=== PATIENT | female | born 1990 | race Caucasian/White ===

== ENCOUNTER 2018-03-21 17:47 | Emergency (ER) | payer OTHER ==
[~2018-03-21] VITALS: Ht 165.1 cm; Wt 72.9 kg
[2018-03-21 17:47] VITALS: BP 119/76
[2018-03-21 18:47] LABS: ALANINE AMINOTRANSFERASE 29 U/L (12-78); ANION GAP 8 mmol/L (5-15); BASOPHILS # (AUTO) 0.03 x10^3/uL (0-0.1); BASOPHILS % (AUTO) 0 % (0-1); CALCIUM 9.2 mg/dL (8.5-10.1); CHLORIDE 106 mmol/L (98-107); EOSINOPHILS % (AUTO) 1 % (1-7); LYMPHOCYTES % (AUTO) 19 % (22-44); MD NO; MEAN CORPUSCULAR HEMOGLOBIN 30.5 pg (27.0-34.8); MEAN CORPUSCULAR HGB CONC 33.9 g/dL (32.4-35.8); MEAN CORPUSCULAR VOLUME 90.2 fL (80-100); MEAN PLATELET VOLUME 9.8 fL (7.4-10.4); MONOCYTES # (AUTO) 0.66 x10^3/uL (0.2-0.8); MONOCYTES % (AUTO) 6 % (2-9); NEUTROPHILS # (AUTO) 8.09 x10^3/uL (1.8-6.8); NEUTROPHILS % (AUTO) 74 % (42-75); PLATELET COUNT 285 x10^3/uL (130-400); RED BLOOD COUNT 5.06 x10^6/uL (3.82-5.3); RED CELL DISTRIBUTION WIDTH 13.3 % (9.6-15.2)
[2018-03-21 18:59] LABS: MICROSCOPIC NOT IND
[2018-03-21 19:04] LABS: CULTURE INDICATED? NO
[2018-03-21 19:09] LABS: ALKALINE PHOSPHATASE 59 U/L (45-117); BILIRUBIN,TOTAL 0.8 mg/dL (0.2-1.0)
[2018-03-21] MEDS ORDERED: PREN1TAB60 PO (20:23)
[2018-03-21] MEDS ORDERED: CALC200T3 PO (20:23)
== END 2018-03-21 20:51 | disposition home or self-care (01) ==
LOC: ED 20:35
DX: O26.891 Other specified pregnancy related conditions, first trimester (principal); R10.2 Pelvic and perineal pain; Z3A.01 Less than 8 weeks gestation of pregnancy; Z88.0 Allergy status to penicillin
CPT/HCPCS: 36415; 76801; 80053; 81003; 84702; 85025; 99285

== ENCOUNTER 2018-11-11 15:30 | Inpatient (IN) | payer OTHER ==
[~2018-11-11] VITALS: Ht 165.1 cm; Wt 84.1 kg
[~2018-11-11 15:30] MED LIST: CALC200T3 PO; PREN1TAB60 PO
[2018-11-17] MEDS: LACTATED RINGERS 1,000 ML IV SCH (03:30)
[2018-11-17] MEDS ORDERED: OXYTOCIN 30U/ 0.9% NaCL 500ML 500 ML IV ONE (20:48)
[2018-11-17] MEDS ORDERED: D5%-LACTATED RINGERS 1,000 ML IV SCH (20:48)
[2018-11-17] MEDS ORDERED: ONDANSETRON 2MG/ML, 2ML IVPush PRN (21:00)
[2018-11-17] MEDS ORDERED: FENTANYL PF 100 MCG/2ML IV PRN (21:00)
[2018-11-17] MEDS ORDERED: CALCIUM CARBONATE 500 MG TAB.CHEW PO PRN (21:00)
[2018-11-17 21:16] VITALS: BP 126/80
[2018-11-17] MEDS ORDERED: MISOPROSTOL 25 MCG TABLET ONE (21:31)
[2018-11-17] MEDS: MISOPROSTOL 25 MCG TABLET VG PRN (21:35)
[2018-11-17 21:50] LABS: BASOPHILS # (AUTO) 0.03 x10^3/uL (0-0.1); BASOPHILS % (AUTO) 0 % (0-1); EOSINOPHILS % (AUTO) 1 % (1-7); LYMPHOCYTES # (AUTO) 1.86 x10^3/uL (1-3.4); LYMPHOCYTES % (AUTO) 17 % (22-44); MD NO; MEAN CORPUSCULAR HEMOGLOBIN 30.8 pg (27.0-34.8); MEAN CORPUSCULAR HGB CONC 34.1 g/dL (32.4-35.8); MEAN CORPUSCULAR VOLUME 90.3 fL (80-100); MEAN PLATELET VOLUME 8.9 fL (7.4-10.4); MONOCYTES # (AUTO) 0.66 x10^3/uL (0.2-0.8); MONOCYTES % (AUTO) 6 % (2-9); NEUTROPHILS # (AUTO) 8.25 x10^3/uL (1.8-6.8); NEUTROPHILS % (AUTO) 76 % (42-75); PLATELET COUNT 226 x10^3/uL (130-400); RED BLOOD COUNT 4.18 x10^6/uL (3.82-5.3); RED CELL DISTRIBUTION WIDTH 13.3 % (9.6-15.2)
[2018-11-18] MEDS: MISOPROSTOL 25 MCG TABLET VG PRN (01:34)
[2018-11-18] MEDS ORDERED: FENTANYL/BUPIV./NS/PF 250 ML EPIDCONT SCH ×2 (03:50→12:18)
[2018-11-18] MEDS ORDERED: OXYTOCIN 30U/ 0.9% NaCL 500ML 500 ML ONE (05:40)
[2018-11-18] MEDS ORDERED: FENTANYL PF 100 MCG/2ML ONE ×3 (06:02→10:00)
[2018-11-18] MEDS: FENTANYL PF 100 MCG/2ML IVPush PRN ×2 (06:10→07:49)
[2018-11-18] MEDS ORDERED: LIDOCAINE 1%, 20ML ONE (06:14)
[2018-11-18] MEDS ORDERED: MISOPROSTOL 200 MCG TABLET ONE (06:14)
[2018-11-18] MEDS ORDERED: OXYTOCIN 30U/ 0.9% NaCL 500ML 500 ML IV PRN (06:18)
[2018-11-18] MEDS ORDERED: LACTATED RINGERS 1,000 ML INTUTE PRN (09:00)
[2018-11-18] MEDS ORDERED: LACTATED RINGERS 1,000 ML INTUTE SCH (09:00)
[2018-11-18] MEDS ORDERED: BUPIVACAINE 0.25% ONE (09:10)
[2018-11-18] MEDS ORDERED: BUPIVACAINE/PF 0.5% ONE (09:10)
[2018-11-18] MEDS: LACTATED RINGERS 1,000 ML IV SCH ×3 (09:36→22:11)
[2018-11-18] MEDS ORDERED: LIDOCAINE/PF 1.5%-EPI 1:200K, 30ML ONE (09:38)
[2018-11-18] MEDS ORDERED: LIDOCAINE/MPF 2%-EPI 1:200K, 20 ML ONE (09:39)
[2018-11-18] MEDS ORDERED: CEFAZOLIN 1,000 MG ONE (11:26)
[2018-11-18] MEDS ORDERED: OXYTOCIN 10 UNITS/ML, 1ML ONE (11:26)
[2018-11-18] MEDS ORDERED: morphine SULFATE/PF 0.5 MG/ML, 10ML ONE (11:26)
[2018-11-18] MEDS ORDERED: ONDANSETRON 2MG/ML, 2ML ONE (11:26)
[2018-11-18] MEDS ORDERED: WATER-INJECTION,STERILE 10 ML IV ONE (11:26)
[2018-11-18] MEDS ORDERED: DEXAMETHASONE 4 MG/ML, 1ML ONE (11:26)
[2018-11-18] MEDS ORDERED: LACTATED RINGERS 1,000 ML IV SCH ×2 (12:11→12:18)
[2018-11-18] MEDS ORDERED: MEPERIDINE/PF 50 MG/ML ONE (12:17)
[2018-11-18] MEDS ORDERED: ACETAMINOPHEN 325 MG TABLET PO PRN (12:30)
[2018-11-18] MEDS ORDERED: ONDANSETRON 2MG/ML, 2ML IVPush PRN ×2 (12:30→13:00)
[2018-11-18] MEDS ORDERED: MISOPROSTOL 200 MCG TABLET PR PRN (12:30)
[2018-11-18] MEDS ORDERED: LACTATED RINGERS 1,000 ML IVBOLUS PRN (12:30)
[2018-11-18] MEDS ORDERED: DIPHENHYDRAMINE 50 MG/ML, 1ML IVPush PRN (12:30)
[2018-11-18] MEDS ORDERED: FENTANYL PF 500 MCG, BUPIVACAINE/PF 0.5%, 30ML 62.5 ML in SODIUM CHLORIDE 0.9% 177.5 ML EPIDCONT SCH (12:30)
[2018-11-18] MEDS ORDERED: IBUPROFEN 600 MG TABLET PO PRN (12:30)
[2018-11-18] MEDS ORDERED: NALOXONE 0.4 MG/ML, 1ML IVPush PRN (12:30)
[2018-11-18] MEDS ORDERED: EPHEDRINE 50 MG/ML, 1ML IVPush PRN ×2 (12:30→13:00)
[2018-11-18] MEDS ORDERED: ONDANSETRON 2MG/ML, 2ML IV PRN (12:30)
[2018-11-18] MEDS ORDERED: MORPHINE SULFATE 4 MG/ML, 1ML IVPush PRN (12:30)
[2018-11-18] MEDS ORDERED: KETOROLAC 30 MG/1 ML ONE (12:51)
[2018-11-18] MEDS: KETOROLAC 30 MG/1 ML IV SCH ×2 (12:55→19:25)
[2018-11-18] MEDS ORDERED: NALOXONE 0.4 MG/ML, 1ML IV PRN (13:00)
[2018-11-18] MEDS ORDERED: morphine SULFATE 10 MG/ML, 1ML IVPush PRN (13:00)
[2018-11-18] MEDS ORDERED: NO SEDATIVES, TRANQUILIZERS OR ANTIEMETICS XX SCH (13:00)
[2018-11-18] MEDS ORDERED: DIPHENHYDRAMINE 50 MG/ML, 1ML IV PRN (13:00)
[2018-11-18] MEDS ORDERED: MEPERIDINE/PF 25MG/0.5ML IVPush PRN (13:00)
[2018-11-18] MEDS: OXYTOCIN 30U/ 0.9% NaCL 500ML 500 ML IV SCH ×2 (13:06→22:11)
[2018-11-18] MEDS ORDERED: OXYcodone 5 MG/5 ML ORAL.SOL UDC ONE (13:33)
[2018-11-18] MEDS ORDERED: OXYcodone 5 MG/5 ML ORAL.SOL UDC PO PRN (14:00)
[2018-11-18 14:30] VITALS: BP 113/75
[2018-11-18 17:00] VITALS: BP 111/71
[2018-11-18] MEDS: OXYcodone IR 5MG TABLET PO PRN (17:22)
[2018-11-18 19:15] VITALS: BP 113/73
[2018-11-18 19:49] LABS: BASOPHILS % (AUTO) 0 % (0-1); EOSINOPHILS % (AUTO) 0 % (1-7); LYMPHOCYTES % (AUTO) 6 % (22-44); MD NO; MEAN CORPUSCULAR HEMOGLOBIN 31.2 pg (27.0-34.8); MEAN CORPUSCULAR HGB CONC 34.6 g/dL (32.4-35.8); MEAN CORPUSCULAR VOLUME 90.1 fL (80-100); MEAN PLATELET VOLUME 8.7 fL (7.4-10.4); MONOCYTES # (AUTO) 1.24 x10^3/uL (0.2-0.8); MONOCYTES % (AUTO) 7 % (2-9); NEUTROPHILS # (AUTO) 15.26 x10^3/uL (1.8-6.8); NEUTROPHILS % (AUTO) 87 % (42-75); PLATELET COUNT 196 x10^3/uL (130-400); RED BLOOD COUNT 3.64 x10^6/uL (3.82-5.3); RED CELL DISTRIBUTION WIDTH 13.5 % (9.6-15.2)
[2018-11-18] MEDS ORDERED: DIPH,PERTUSS(ACELL),TET VAC/PF NC IM-VACC ONE (22:30)
[2018-11-19] VITALS: BP 109/70
[2018-11-19] MEDS: KETOROLAC 30 MG/1 ML IV SCH ×4 (01:42→18:30)
[2018-11-19] MEDS: KETOROLAC 30 MG/1 ML IVPush SCH ×3 (07:00→21:35)
[2018-11-19 08:00] VITALS: BP 115/74
[2018-11-19] MEDS: PRENATAL VIT/IRON/FA 1 EACH TABLET PO SCH (09:00)
[2018-11-19 12:00] VITALS: BP 110/75
[2018-11-19] MEDS: OXYcodone IR 5MG TABLET PO PRN ×3 (12:04→21:35)
[2018-11-19 21:00] VITALS: BP 115/75
[2018-11-19] MEDS: OXYcodone/APAP 5/325MG TABLET PO PRN (21:35)
[2018-11-19] MEDS: DOCUSATE 100 MG CAPSULE PO PRN (21:35)
[2018-11-20] MEDS: KETOROLAC 30 MG/1 ML IV SCH ×2 (00:30→06:30)
[2018-11-20] MEDS: KETOROLAC 30 MG/1 ML IVPush SCH (02:39)
[2018-11-20] MEDS: OXYcodone IR 5MG TABLET PO PRN ×2 (02:40→09:33)
[2018-11-20 07:15] VITALS: BP 126/93
[2018-11-20] MEDS: OXYcodone/APAP 5/325MG TABLET PO PRN (07:44)
[2018-11-20] MEDS: PRENATAL VIT/IRON/FA 1 EACH TABLET PO SCH (09:33)
[2018-11-20] MEDS: DOCUSATE 100 MG CAPSULE PO PRN (09:33)
[2018-11-20] MEDS ORDERED: OXYC-302 PO (11:18)
[2018-11-20] MEDS ORDERED: IBUP-1222 PO (11:18)
== END 2018-11-20 14:15 | disposition home or self-care (01) | DRG 788 ==
LOC: LDIP 11-17 20:46 → 2NW 11-18 14:20
PROVIDERS: ADMIT Obstetrics & Gynecology; ATTEND Obstetrics & Gynecology
PROC: 10D00Z1 Extraction of Products of Conception, Low, Open Approach (ICD-10-PCS; principal; 2018-11-18)
DX: O48.0 Post-term pregnancy (principal); O76 Abnormality in fetal heart rate and rhythm complicating labor and delivery; Z37.0 Single live birth; Z3A.41 41 weeks gestation of pregnancy
CPT/HCPCS: 36415; J7121; 82803; 85025; 86850; 86900; 90715; G0378; J0690; J1100; J1885; J2274; J2405; J3010; J3490; J2590; J7120

== ENCOUNTER 2018-11-23 14:30 | Inpatient (IN) | payer OTHER ==
[~2018-11-23] VITALS: Ht 162.6 cm; Wt 76.6 kg
[~2018-11-23 14:30] MED LIST changes: +IBUP-1222 PO; +OXYC-302 PO
[2018-11-23] MEDS ORDERED: MAALOX/HYOSCYAMINE/LIDOCAINE 45 ML BTL ONE (15:13)
[2018-11-23 15:28] LABS: ALANINE AMINOTRANSFERASE 26 U/L (12-78); ALBUMIN 2.9 g/dL (3.4-5.0); ANION GAP 9 mmol/L (5-15); CALCIUM 8.2 mg/dL (8.5-10.1); CHLORIDE 110 mmol/L (98-107); CREATININE 0.61 mg/dL (0.55-1.02)
[2018-11-23 15:30] LABS: BASOPHILS # (AUTO) 0.03 x10^3/uL (0-0.1); BASOPHILS % (AUTO) 0 % (0-1); EOSINOPHILS # (AUTO) 0.14 x10^3/uL (0-0.4); EOSINOPHILS % (AUTO) 2 % (1-7); LYMPHOCYTES # (AUTO) 1.29 x10^3/uL (1-3.4); LYMPHOCYTES % (AUTO) 14 % (22-44); MD NO; MEAN CORPUSCULAR HEMOGLOBIN 30.5 pg (27.0-34.8); MEAN CORPUSCULAR HGB CONC 34.1 g/dL (32.4-35.8); MEAN CORPUSCULAR VOLUME 89.3 fL (80-100); MEAN PLATELET VOLUME 8.8 fL (7.4-10.4); MONOCYTES # (AUTO) 0.57 x10^3/uL (0.2-0.8); MONOCYTES % (AUTO) 6 % (2-9); NEUTROPHILS % (AUTO) 78 % (42-75); PLATELET COUNT 288 x10^3/uL (130-400); RED BLOOD COUNT 4.03 x10^6/uL (3.82-5.3); RED CELL DISTRIBUTION WIDTH 13.3 % (9.6-15.2)
[2018-11-23] MEDS ORDERED: MAALOX/HYOSCYAMINE/LIDOCAINE 45 ML BTL PO ONE (15:30)
[2018-11-23 15:32] LABS: ALKALINE PHOSPHATASE 96 U/L (45-117); BILIRUBIN,TOTAL 0.7 mg/dL (0.2-1.0); TOTAL PROTEIN 6.4 g/dL (6.4-8.2); TROPONIN I < 0.015 ng/mL (0.000-0.045)
--- NOTE | 2018-11-23 16:15 | NUR ---
URINE COLLECTED AND SENT TO LAB. PATIENT RESTING AND STATES THAT CHEST PAIN HAS GOTTEN SLIGHTLY BETTER.
[2018-11-23 16:32] LABS: MICROSCOPIC AUTO
[2018-11-23 16:33] LABS: CULTURE INDICATED? NO
[2018-11-23] MEDS ORDERED: LABETALOL 5 MG/ML SYRINGE IVPush ONE (17:30)
[2018-11-23] MEDS ORDERED: MAGNESIUM SULFATE IN WATER 50 ML IV ONE (18:00)
--- NOTE | 2018-11-23 18:10 | NUR ---
Patient to CT
[2018-11-23] MEDS ORDERED: OMNIPAQUE 350 MG/ML, 100ML BOTTLE ONE (18:35)
--- NOTE | 2018-11-23 19:00 | NUR ---
CALLED PHARMACY TO FIND OUT IF MGSO4 CAN BE RUN AT 4GM OVER 20 MINUTES FOR PRE-ECLAMPSIA. PER PHARMACIST, KARISSA, THIS IS OK FOR THIS INDICATION. 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 INCREASED RATE AND RUNNING MAGNESIUM OF 4GM OVER 20 MINUTES LOADING DOSE. ALSO CHECKED WITH [facility] TO FIND OUT OF MAGNESIUMJ IS SAFE FOR AND IT IS. PATIENT NOTIFIED.
--- NOTE | 2018-11-23 20:05 | NUR ---
PT. RESTING ON GURNEY WITH NADN. DENIES NEEDS. AWATING RECHECK/ADM ORDER BY PROVIDER. FAMILY AT BS FOR SUPPORT. CALL LIGHT IN REACH. PT. DENIES NEEDS AT THIS TIME. ALL MONITORS IN PLACE.
[2018-11-23] MEDS ORDERED: SODIUM CHLORIDE FLUSH 10ML SYR IVF PRN (20:30)
--- NOTE | 2018-11-23 20:45 | NUR ---
REPORT TO RUI CRANE.
[2018-11-23] MEDS ORDERED: OXYcodone/APAP 5/325MG TABLET PO PRN (22:30)
[2018-11-23] MEDS ORDERED: ACETAMINOPHEN 325 MG TABLET PO PRN (22:30)
[2018-11-23] MEDS ORDERED: ACETAMINOPHEN 325 MG TABLET ONE (23:07)
[2018-11-24 07:40] VITALS: BP 138/86
[2018-11-24] MEDS ORDERED: MAGNESIUM SULFATE PMX 4GM/100M 100 ML IVPB ONE (09:00)
[2018-11-24] MEDS ORDERED: IBUPROFEN 600 MG TABLET ONE (11:15)
[2018-11-24] MEDS: IBUPROFEN 800 MG TABLET PO PRN ×2 (11:20→19:26)
[2018-11-24] MEDS ORDERED: OXYcodone/APAP 5/325MG TABLET ONE (11:56)
[2018-11-24] MEDS ORDERED: LABETALOL 100 MG TABLET PO SCH (16:00)
[2018-11-24] MEDS ORDERED: LABETALOL 100 MG TABLET ONE (16:27)
[2018-11-24] MEDS: LABETALOL 100 MG TABLET PO SCH (16:31)
[2018-11-24] MEDS ORDERED: IBUPROFEN 800 MG TABLET ONE (19:16)
[2018-11-24] MEDS ORDERED: DOCUSATE 100 MG CAPSULE ONE (19:16)
[2018-11-24 19:20] VITALS: BP 116/77
[2018-11-25] MEDS ORDERED: LABETALOL 100 MG TABLET ONE (03:40)
[2018-11-25] MEDS ORDERED: IBUPROFEN 800 MG TABLET ONE (03:40)
[2018-11-25] MEDS: IBUPROFEN 800 MG TABLET PO PRN (03:43)
[2018-11-25] MEDS: LABETALOL 100 MG TABLET PO SCH (03:44)
[2018-11-25] MEDS ORDERED: LABE100T6 PO (08:47)
== END 2018-11-25 09:45 | disposition home or self-care (01) | DRG 776 ==
LOC: ED 19:12 → INTOOBSV 20:10 → OBSVTOIN 20:10 → EDIP 20:10 → 2NE 21:15
PROVIDERS: ADMIT Obstetrics & Gynecology; ATTEND Obstetrics & Gynecology
DX: O11.5 Pre-existing hypertension with pre-eclampsia, complicating the puerperium (principal); Z88.8 Allergy status to other drugs, medicaments and biological substances
CPT/HCPCS: 36415; 71046; 71275; 80053; 81001; 84484; 84550; 85025; 93005; 96374; 99291; G0378; Q9967

== ENCOUNTER 2020-03-30 12:03 | Inpatient (IN) | payer OTHER ==
[~2020-03-30] VITALS: Ht 165.1 cm; Wt 82.7 kg
[~2020-03-30 12:03] MED LIST changes: +LABE100T6 PO
[2020-04-02] MEDS ORDERED: METOCLOPRAMIDE 5 MG/ML, 2ML ONE (09:52)
[2020-04-02] MEDS ORDERED: NEWBORN KIT ONE (09:52)
[2020-04-02] MEDS ORDERED: OXYTOCIN 30U/ 0.9% NaCL 500ML 500 ML ONE (09:52)
[2020-04-02] MEDS ORDERED: LACTATED RINGERS 1,000 ML IV SCH (09:53)
[2020-04-02] MEDS ORDERED: SODIUM CITRATE/CITRIC ACID 30 ML UDC ONE (09:53)
[2020-04-02] MEDS ORDERED: LACTATED RINGERS 1,000 ML IVBOLUS ONE (10:00)
[2020-04-02] MEDS ORDERED: METOCLOPRAMIDE 5 MG/ML, 2ML IV ONE (10:00)
[2020-04-02] MEDS ORDERED: SODIUM CITRATE/CITRIC ACID 30 ML UDC PO ONE (10:00)
[2020-04-02 10:18] LABS: BASOPHILS # (AUTO) 0.04 x10^3/uL (0-0.1); BASOPHILS % (AUTO) 0 % (0-1); EOSINOPHILS # (AUTO) 0.06 x10^3/uL (0-0.4); EOSINOPHILS % (AUTO) 1 % (1-7); LYMPHOCYTES # (AUTO) 1.74 x10^3/uL (1-3.4); LYMPHOCYTES % (AUTO) 17 % (22-44); MD NO; MEAN CORPUSCULAR HEMOGLOBIN 29.7 pg (27.0-34.8); MEAN CORPUSCULAR HGB CONC 33.5 g/dL (32.4-35.8); MEAN CORPUSCULAR VOLUME 88.6 fL (80-100); MEAN PLATELET VOLUME 8.4 fL (7.4-10.4); MONOCYTES # (AUTO) 0.56 x10^3/uL (0.2-0.8); MONOCYTES % (AUTO) 5 % (2-9); NEUTROPHILS # (AUTO) 7.88 x10^3/uL (1.8-6.8); NEUTROPHILS % (AUTO) 77 % (42-75); PLATELET COUNT 213 x10^3/uL (130-400); RED CELL DISTRIBUTION WIDTH 13.5 % (9.6-15.2)
[2020-04-02] MEDS ORDERED: OXYTOCIN 10 UNITS/ML, 1ML ONE (10:21)
[2020-04-02] MEDS ORDERED: ONDANSETRON 2MG/ML, 2ML ONE (10:21)
[2020-04-02] MEDS ORDERED: CEFAZOLIN 1,000 MG ONE (10:21)
[2020-04-02] MEDS ORDERED: FENTANYL PF 100 MCG/2ML ONE (10:21)
[2020-04-02] MEDS ORDERED: SODIUM CHLORIDE 0.9% PF 10ML ONE ×2 (10:22)
[2020-04-02] MEDS ORDERED: HYDROmorphone 2 MG/ML, 1ML ONE (10:22)
[2020-04-02 10:26] VITALS: BP 117/75
[2020-04-02] MEDS: LACTATED RINGERS 1,000 ML IV SCH ×4 (13:01→23:01)
[2020-04-02] MEDS ORDERED: KETOROLAC 30 MG/1 ML ONE (13:02)
[2020-04-02] MEDS ORDERED: PHENYLEPHRINE 10 MG/ML ONE (13:03)
[2020-04-02] MEDS ORDERED: MISOPROSTOL 200 MCG TABLET PR PRN (13:30)
[2020-04-02] MEDS ORDERED: morphine SULFATE 10 MG/ML, 1ML IV PRN (13:30)
[2020-04-02] MEDS ORDERED: ONDANSETRON 2MG/ML, 2ML IV PRN (13:30)
[2020-04-02] MEDS ORDERED: ACETAMINOPHEN 325 MG TABLET PO PRN (13:30)
[2020-04-02] MEDS: OXYTOCIN 30U/ 0.9% NaCL 500ML 500 ML IV SCH ×2 (14:22→23:01)
[2020-04-02 15:53] VITALS: BP 112/77
[2020-04-02] MEDS: OXYcodone/APAP 5/325MG TABLET PO PRN ×2 (16:15→20:46)
[2020-04-02 19:35] VITALS: BP 101/63
[2020-04-02] MEDS: DOCUSATE 100 MG CAPSULE PO PRN (19:35)
[2020-04-02] MEDS: SIMETHICONE 80 MG CHEW TAB PO PRN (19:35)
[2020-04-02] MEDS: KETOROLAC 30 MG/1 ML IV SCH (19:35)
[2020-04-02 20:54] LABS: BASOPHILS # (AUTO) 0.08 x10^3/uL (0-0.1); BASOPHILS % (AUTO) 1 % (0-1); EOSINOPHILS # (AUTO) 0.15 x10^3/uL (0-0.4); EOSINOPHILS % (AUTO) 1 % (1-7); LYMPHOCYTES # (AUTO) 1.89 x10^3/uL (1-3.4); LYMPHOCYTES % (AUTO) 15 % (22-44); MD NO; MEAN CORPUSCULAR HEMOGLOBIN 29.9 pg (27.0-34.8); MEAN CORPUSCULAR HGB CONC 33.7 g/dL (32.4-35.8); MEAN CORPUSCULAR VOLUME 88.7 fL (80-100); MEAN PLATELET VOLUME 8.6 fL (7.4-10.4); MONOCYTES # (AUTO) 0.88 x10^3/uL (0.2-0.8); MONOCYTES % (AUTO) 7 % (2-9); NEUTROPHILS # (AUTO) 9.69 x10^3/uL (1.8-6.8); NEUTROPHILS % (AUTO) 76 % (42-75); PLATELET COUNT 196 x10^3/uL (130-400); RED BLOOD COUNT 3.84 x10^6/uL (3.82-5.3); RED CELL DISTRIBUTION WIDTH 13.4 % (9.6-15.2)
[2020-04-03] MEDS: OXYcodone IR 5MG TABLET PO PRN ×5 (00:31→19:38)
[2020-04-03 00:34] VITALS: BP 102/66
[2020-04-03] MEDS: SIMETHICONE 80 MG CHEW TAB PO PRN ×3 (01:34→19:41)
[2020-04-03] MEDS: KETOROLAC 30 MG/1 ML IV SCH ×4 (01:34→19:38)
[2020-04-03 03:59] VITALS: BP 108/71
[2020-04-03] MEDS: LACTATED RINGERS 1,000 ML IV SCH ×5 (05:01→21:01)
[2020-04-03 07:15] VITALS: BP 114/73
[2020-04-03] MEDS: DOCUSATE 100 MG CAPSULE PO PRN ×2 (07:53→19:38)
[2020-04-03] MEDS: PRENATAL VIT/IRON/FA 1 EACH TABLET PO SCH (07:53)
[2020-04-03] MEDS: OXYTOCIN 30U/ 0.9% NaCL 500ML 500 ML IV SCH ×2 (09:01→19:01)
[2020-04-03 20:00] VITALS: BP 115/82
[2020-04-04] MEDS: KETOROLAC 30 MG/1 ML IV SCH (01:43)
[2020-04-04] MEDS: OXYcodone/APAP 5/325MG TABLET PO PRN ×3 (01:44→13:09)
[2020-04-04] MEDS: LACTATED RINGERS 1,000 ML IV SCH ×3 (05:01→13:01)
[2020-04-04] MEDS: OXYTOCIN 30U/ 0.9% NaCL 500ML 500 ML IV SCH (05:01)
[2020-04-04 07:05] VITALS: BP 119/82
[2020-04-04] MEDS ORDERED: IBUPROFEN 600 MG TABLET ONE (07:41)
[2020-04-04] MEDS: IBUPROFEN 600 MG TABLET PO PRN ×2 (07:48→13:09)
[2020-04-04] MEDS: PRENATAL VIT/IRON/FA 1 EACH TABLET PO SCH (07:48)
[2020-04-04] MEDS: DOCUSATE 100 MG CAPSULE PO PRN (07:48)
[2020-04-04] MEDS ORDERED: IBUPROFEN 600 MG TABLET PO PRN (13:30)
== END 2020-04-04 13:40 | disposition home or self-care (01) | DRG 788 ==
LOC: LDIP 04-02 09:36 → 2NW 04-02 15:09
PROVIDERS: ADMIT Obstetrics & Gynecology; ATTEND Obstetrics & Gynecology
PROC: 10D00Z1 Extraction of Products of Conception, Low, Open Approach (ICD-10-PCS; principal; 2020-04-02)
DX: O34.211 Maternal care for low transverse scar from previous cesarean delivery (principal); Z3A.40 40 weeks gestation of pregnancy; Z37.0 Single live birth; O69.81X0 Labor and delivery complicated by cord around neck, without compression, not applicable or unspecified; G89.18 Other acute postprocedural pain; Z90.49 Acquired absence of other specified parts of digestive tract; O90.89 Other complications of the puerperium, not elsewhere classified
CPT/HCPCS: 36415; 85025; 86592; 86850; 86900; 87635; G0378; J0690; J1170; J1885; J2405; J3010; J2370; J2590; J2765; J7120

== ENCOUNTER 2020-04-11 09:48 | Inpatient (IN) | payer OTHER ==
[~2020-04-11] VITALS: Ht 165.1 cm; Wt 70.9 kg
--- NOTE | 2020-04-11 10:03 | NUR ---
PT AMBULATED TO ROOM FROM TRIAGE AT THIS TIME.
--- NOTE | 2020-04-11 10:05 | NUR ---
THIS IS A 30 YO F W/ C/O CHEST PRESSURE, RT SHOULDER PAIN AND PAIN BEHIND EYES SINCE WEDNESDAY. PT HAD CSECTION ON MONDAY 04/02. PT REPORTS HX OF POST HTN W/ FIRST . [id number]-A0. PT DENIES BLE SWELLING/PAIN, SOB, N/V/D. PT RESTING ON GURNEY W/ CALL LIGHT IN REACH AND FAMILY AT BEDSIDE. CONNECTED TO ALL MONITORING. VSS, NADN. AWAITING ORDERS.
[2020-04-11] MEDS ORDERED: LABE200T6 PO (10:12)
[2020-04-11] MEDS ORDERED: MORPHINE SULFATE 4 MG/ML, 1ML ONE ×2 (10:21→12:51)
[2020-04-11] MEDS ORDERED: ASPIRIN 81 MG TABLET CHEW ONE (10:21)
[2020-04-11] MEDS ORDERED: ONDANSETRON 2MG/ML, 2ML ONE ×2 (10:21→12:50)
[2020-04-11] MEDS ORDERED: SODIUM CHLORIDE FLUSH 10ML SYR IVF ONE (10:30)
[2020-04-11] MEDS ORDERED: ASPIRIN 81 MG TABLET CHEW PO ONE (10:30)
[2020-04-11] MEDS: ONDANSETRON 2MG/ML, 2ML IVPush ONE ×3 (10:30→12:54)
--- NOTE | 2020-04-11 10:30 | NUR ---
URINE COLLECTED AND SENT TO LAB.
[2020-04-11 10:37] LABS: MICROSCOPIC AUTO
[2020-04-11] MEDS: MORPHINE SULFATE 4 MG/ML, 1ML IVPush PRN ×3 (10:46→12:53)
--- NOTE | 2020-04-11 10:57 | NUR ---
PIV STARTED, LABS DRAWN AND SENT TO LAB. BRETT CHAVEZ. PT REFUSING MORPHINE AT THIS TIME DUE TO .
[2020-04-11 10:58] LABS: BASOPHILS # (AUTO) 0.01 x10^3/uL (0-0.1); BASOPHILS % (AUTO) 0 % (0-1); EOSINOPHILS # (AUTO) 0.14 x10^3/uL (0-0.4); EOSINOPHILS % (AUTO) 2 % (1-7); LYMPHOCYTES # (AUTO) 1.43 x10^3/uL (1-3.4); LYMPHOCYTES % (AUTO) 24 % (22-44); MD NO; MEAN CORPUSCULAR HEMOGLOBIN 28.9 pg (27.0-34.8); MEAN CORPUSCULAR HGB CONC 32.2 g/dL (32.4-35.8); MEAN CORPUSCULAR VOLUME 89.8 fL (80-100); MEAN PLATELET VOLUME 8.1 fL (7.4-10.4); MONOCYTES # (AUTO) 0.32 x10^3/uL (0.2-0.8); MONOCYTES % (AUTO) 5 % (2-9); NEUTROPHILS # (AUTO) 4.02 x10^3/uL (1.8-6.8); NEUTROPHILS % (AUTO) 68 % (42-75); PLATELET COUNT 356 x10^3/uL (130-400); RED BLOOD COUNT 4.22 x10^6/uL (3.82-5.3)
[2020-04-11 11:06] LABS: ALBUMIN 3.5 g/dL (3.4-5.0); ANION GAP 6 mmol/L (5-15); CALCIUM 8.7 mg/dL (8.5-10.1); CHLORIDE 113 mmol/L (98-107); CREATININE 0.72 mg/dL (0.55-1.02)
[2020-04-11 11:10] LABS: TROPONIN I < 0.015 ng/mL (0.000-0.045)
[2020-04-11] MEDS ORDERED: KETOROLAC 30 MG/1 ML ONE (11:25)
[2020-04-11] MEDS ORDERED: KETOROLAC 30 MG/1 ML IVPush ONE (11:30)
--- NOTE | 2020-04-11 11:37 | NUR ---
PT MEDICATED PER EMAR. UPDATED ON POC FOR CTA.
--- NOTE | 2020-04-11 11:39 | NUR ---
PT TO CT.
--- NOTE | 2020-04-11 11:59 | NUR ---
ALL TESTS RESULTED. PT IS UP FOR RECHECK AT THIS TIME.
[2020-04-11] MEDS ORDERED: OMNIPAQUE 350 MG/ML, 100ML BOTTLE ONE (12:07)
[2020-04-11] MEDS ORDERED: HEPARIN 5,000 UNITS/ML, 1ML ONE (12:50)
[2020-04-11] MEDS ORDERED: HEPARIN 25,000 UNITS/250ML PMX 250 ML ONE (12:51)
[2020-04-11] MEDS ORDERED: HEPARIN 5,000 UNITS/ML, 1ML IV ONE (13:00)
[2020-04-11] MEDS ORDERED: HEPARIN 5,000 UNITS/ML, 1ML IV PRN (13:00)
[2020-04-11] MEDS: HEPARIN 25,000 UNITS/250ML PMX 250 ML IV PRN (13:07)
[2020-04-11 13:14] LABS: ALBUMIN 3.4 g/dL (3.4-5.0); BILIRUBIN, DIRECT 0.1 mg/dL (0.1-0.2)
[2020-04-11 13:16] LABS: BILIRUBIN,INDIRECT 0.6 mg/dL (0.0-2.0); BILIRUBIN,TOTAL 0.7 mg/dL (0.2-1.0); TOTAL PROTEIN 7.1 g/dL (6.4-8.2)
[2020-04-11] MEDS ORDERED: POLYETHYLENE GLYCOL 17 GM PACKET PO PRN (14:00)
[2020-04-11] MEDS ORDERED: OXYcodone IR 5MG TABLET PO PRN (14:00)
[2020-04-11] MEDS ORDERED: BISACODYL 10 MG SUPP PR PRN (14:00)
[2020-04-11] MEDS ORDERED: hydrALAzine 20 MG/ML, 1ML IVPush PRN (14:00)
[2020-04-11] MEDS ORDERED: DIPHENHYDRAMINE 25 MG CAPSULE PO PRN (14:00)
[2020-04-11] MEDS ORDERED: morphine SULFATE 10 MG/ML, 1ML IVPush PRN (14:00)
[2020-04-11] MEDS ORDERED: ONDANSETRON 2MG/ML, 2ML IVPush PRN (14:00)
[2020-04-11] MEDS ORDERED: MELATONIN 5 MG TABLET PO PRN (14:00)
--- NOTE | 2020-04-11 14:07 | NUR ---
REPORT FROM RUI NICHOLAS. PT CARE RESPONSIBILITIES ASSUMED.
--- NOTE | 2020-04-11 15:07 | NUR ---
PT UPDATED ON PLAN OF CARE. REQUESTING MEAL TRAY AT THIS TIME. REPORT CALLED TO RUI JACKSON. CALL LIGHT IN REACH.
[2020-04-11 16:03] VITALS: BP 130/82
[2020-04-11] MEDS: METHYLDOPA 250 MG TABLET PO SCH ×2 (16:40→20:47)
[2020-04-11 18:03] LABS: BASOPHILS # (AUTO) 0.02 x10^3/uL (0-0.1); BASOPHILS % (AUTO) 0 % (0-1); EOSINOPHILS # (AUTO) 0.15 x10^3/uL (0-0.4); EOSINOPHILS % (AUTO) 2 % (1-7); LYMPHOCYTES # (AUTO) 2.16 x10^3/uL (1-3.4); LYMPHOCYTES % (AUTO) 33 % (22-44); MD NO; MEAN CORPUSCULAR HEMOGLOBIN 29.6 pg (27.0-34.8); MEAN CORPUSCULAR HGB CONC 33.1 g/dL (32.4-35.8); MEAN CORPUSCULAR VOLUME 89.3 fL (80-100); MEAN PLATELET VOLUME 8.2 fL (7.4-10.4); MONOCYTES # (AUTO) 0.49 x10^3/uL (0.2-0.8); MONOCYTES % (AUTO) 8 % (2-9); NEUTROPHILS # (AUTO) 3.68 x10^3/uL (1.8-6.8); NEUTROPHILS % (AUTO) 57 % (42-75); PLATELET COUNT 365 x10^3/uL (130-400); RED BLOOD COUNT 4.25 x10^6/uL (3.82-5.3); RED CELL DISTRIBUTION WIDTH 13.7 % (9.6-15.2)
[2020-04-11 20:06] VITALS: BP 118/78
[2020-04-11] MEDS: LABETALOL 200 MG TABLET PO SCH (20:47)
[2020-04-12 01:36] VITALS: BP 123/81
[2020-04-12 07:14] LABS: BASOPHILS # (AUTO) 0.01 x10^3/uL (0-0.1); BASOPHILS % (AUTO) 0 % (0-1); EOSINOPHILS # (AUTO) 0.16 x10^3/uL (0-0.4); EOSINOPHILS % (AUTO) 3 % (1-7); LYMPHOCYTES # (AUTO) 1.48 x10^3/uL (1-3.4); LYMPHOCYTES % (AUTO) 26 % (22-44); MD NO; MEAN CORPUSCULAR HGB CONC 32.5 g/dL (32.4-35.8); MEAN CORPUSCULAR VOLUME 89.2 fL (80-100); MEAN PLATELET VOLUME 7.8 fL (7.4-10.4); MONOCYTES # (AUTO) 0.37 x10^3/uL (0.2-0.8); MONOCYTES % (AUTO) 7 % (2-9); NEUTROPHILS % (AUTO) 65 % (42-75); PLATELET COUNT 358 x10^3/uL (130-400); RED BLOOD COUNT 4.58 x10^6/uL (3.82-5.3); RED CELL DISTRIBUTION WIDTH 14.1 % (9.6-15.2)
[2020-04-12 07:25] LABS: ANION GAP 6 mmol/L (5-15); CALCIUM 8.4 mg/dL (8.5-10.1); CHLORIDE 110 mmol/L (98-107); CREATININE 0.79 mg/dL (0.55-1.02)
[2020-04-12 08:11] VITALS: BP 125/87
[2020-04-12] MEDS: METHYLDOPA 250 MG TABLET PO SCH ×2 (08:30→16:10)
[2020-04-12] MEDS: LABETALOL 200 MG TABLET PO SCH (08:30)
[2020-04-12] MEDS: ACETAMINOPHEN 325 MG TABLET PO PRN ×2 (08:31→17:01)
[2020-04-12] MEDS ORDERED: SENNA/DOCUSATE TABLET PO SCH (09:00)
[2020-04-12] MEDS ORDERED: MULTIVITAMIN 1 TABLET PO SCH (09:00)
[2020-04-12] MEDS: HEPARIN 25,000 UNITS/250ML PMX 250 ML IV PRN (10:57)
[2020-04-12] MEDS ORDERED: ENOX80SY5 SQ (12:16)
[2020-04-12 13:25] VITALS: BP 135/90
[2020-04-12] MEDS ORDERED: ENOXAPARIN 60 MG/0.6 ML SQ SCH (16:00)
[2020-04-12] MEDS ORDERED: ENOXAPARIN 80 MG/0.8 ML SQ ONE (17:00)
[2020-04-12] MEDS ORDERED: METH250T3 PO (17:22)
== END 2020-04-12 17:46 | disposition home or self-care (01) | DRG 176 ==
LOC: ED 10:52 → EDIP 12:41 → 4WST 15:39
PROVIDERS: ADMIT Hospitalist; ATTEND Internal Medicine
DX: I26.99 Other pulmonary embolism without acute cor pulmonale (principal); I10 Essential (primary) hypertension; I34.0 Nonrheumatic mitral (valve) insufficiency; R07.89 Other chest pain; Z88.1 Allergy status to other antibiotic agents; Z88.8 Allergy status to other drugs, medicaments and biological substances; Z90.49 Acquired absence of other specified parts of digestive tract
CPT/HCPCS: 36415; 71045; 71275; 80048; 80076; 81001; 82040; 83880; 84484; 85025; 85379; 85520; 86850; 86900; 87086; 93005; 93306; 93970; G0378; J1644; J1650; J1885; J2405; Q9967; J2270

== ENCOUNTER 2020-04-16 17:18 | Emergency (ER) | payer OTHER ==
[~2020-04-16] VITALS: Ht 165.1 cm; Wt 74.3 kg
[~2020-04-16 17:18] MED LIST changes: +ENOX80SY5 SQ; +LABE200T6 PO; +METH250T3 PO
[2020-04-16 18:05] LABS: BASOPHILS # (AUTO) 0.02 x10^3/uL (0-0.1); BASOPHILS % (AUTO) 0 % (0-1); EOSINOPHILS # (AUTO) 0.21 x10^3/uL (0-0.4); EOSINOPHILS % (AUTO) 4 % (1-7); LYMPHOCYTES # (AUTO) 1.91 x10^3/uL (1-3.4); LYMPHOCYTES % (AUTO) 34 % (22-44); MD NO; MEAN CORPUSCULAR HEMOGLOBIN 28.9 pg (27.0-34.8); MEAN CORPUSCULAR HGB CONC 32.5 g/dL (32.4-35.8); MEAN CORPUSCULAR VOLUME 88.9 fL (80-100); MEAN PLATELET VOLUME 8.5 fL (7.4-10.4); MONOCYTES # (AUTO) 0.45 x10^3/uL (0.2-0.8); MONOCYTES % (AUTO) 8 % (2-9); NEUTROPHILS # (AUTO) 3.06 x10^3/uL (1.8-6.8); NEUTROPHILS % (AUTO) 54 % (42-75); PLATELET COUNT 358 x10^3/uL (130-400); RED BLOOD COUNT 4.42 x10^6/uL (3.82-5.3); RED CELL DISTRIBUTION WIDTH 13.7 % (9.6-15.2)
[2020-04-16 18:15] LABS: ALBUMIN 3.7 g/dL (3.4-5.0); ANION GAP 7 mmol/L (5-15); CALCIUM 8.8 mg/dL (8.5-10.1); CHLORIDE 110 mmol/L (98-107)
[2020-04-16 18:20] LABS: ALANINE AMINOTRANSFERASE 92 U/L (12-78); ALKALINE PHOSPHATASE 87 U/L (45-117); BILIRUBIN,TOTAL 0.6 mg/dL (0.2-1.0); CREATININE 0.78 mg/dL (0.55-1.02); TOTAL PROTEIN 7.4 g/dL (6.4-8.2); TROPONIN I < 0.015 ng/mL (0.000-0.045)
--- NOTE | 2020-04-16 19:14 | NUR ---
Pt back to room.
[2020-04-16 21:17] VITALS: BP 145/97
--- NOTE | 2020-04-16 21:26 | NUR ---
PT WAS IN CARE OF THIS RN POST EXAMS AND RESULTS. Patient/Caregiver given discharge instructions and they have confirmed that they understand the instructions. Patient ambulatory with steady gait. DC INSTRUCTIONS REVIEWED THROUGHLY FOR THE PATIENT AND VERBALIZED BETTER UNDERSTANDING.
== END 2020-04-16 21:29 | disposition home or self-care (01) ==
LOC: ED 21:00
DX: R07.89 Other chest pain (principal); I10 Essential (primary) hypertension; R94.31 Abnormal electrocardiogram [ECG] [EKG]; Z86.711 Personal history of pulmonary embolism
CPT/HCPCS: 36415; 71045; 80053; 84484; 85025; 93005; 99285